=== PATIENT | male | born 1980 | race Caucasian/White ===

== ENCOUNTER 2024-06-27 06:25 | Day surgery (SDC) | payer BC, OTHER ==
[2024-06-27] MEDS ORDERED: Midazolam 1 MG/ML 2 ML SDV ONE (06:45)
[2024-06-27] MEDS ORDERED: Propofol 200 MG/20 ML SDV ONE ×2 (06:45→08:06)
[2024-06-27] MEDS ORDERED: fentaNYL 50 MCG/ML SDV ONE (06:46)
[2024-06-27] MEDS: Sodium Chloride 0.9% 1,000 ML IV SCH (07:17)
== END 2024-06-27 09:33 | disposition home or self-care (01) ==
LOC: JP.SDS 06:25
PROVIDERS: ATTEND Surgery
DX: K64.8 Other hemorrhoids (principal)
CPT/HCPCS: 00811; 45398; J2250; J2704; J3010; J7030